=== PATIENT | female | born 1965 | race Two or more races ===

== ENCOUNTER 2017-12-25 09:35 | Emergency (ER) | payer BC ==
[~2017-12-25] VITALS: Ht 157.5 cm; Wt 68.0 kg
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
[2017-12-25] MEDS ORDERED: IBUPROFEN 400 MG TABLET ONE (10:23)
[2017-12-25] MEDS ORDERED: ONDANSETRON 4 MG TAB.RAPDIS ONE (10:24)
[2017-12-25] MEDS ORDERED: ONDANSETRON 4 MG TAB.RAPDIS SL ONE (10:30)
[2017-12-25] MEDS ORDERED: IBUPROFEN 400 MG TABLET PO ONE (10:30)
--- NOTE | 2017-12-25 10:30 | NUR ---
PT TAKEN TO CT SCAN
--- NOTE | 2017-12-25 13:24 | NUR ---
Patient discharged to home in stable condition. Written and verbal after care instructions given. Patient verbalizes understanding of instruction.
[2017-12-25 13:25] VITALS: BP 131/74
== END 2017-12-25 13:25 | disposition home or self-care (01) ==
LOC: ER 09:39
DX: S16.1XXA Strain of muscle, fascia and tendon at neck level, initial encounter (principal); V43.52XA Car driver injured in collision with other type car in traffic accident, initial encounter; Y93.89 Activity, other specified; Y92.410 Unspecified street and highway as the place of occurrence of the external cause; Y99.8 Other external cause status
CPT/HCPCS: 70450; 72125; 99284; A4606; Q0162; Z7610